=== PATIENT | female | born 1955 | race American Indian/Alaskan Native ===

== ENCOUNTER 2017-01-02 08:16 | Outpatient (CLI) | payer OTHER ==
--- NOTE | 2017-01-04 07:57 | Vascular Lab Report ---
LOWER EXTREMITY VENOUS DUPLEX: REASON FOR EXAM: Pain and swelling of the lower extremities. COMMENTS ON THE RIGHT: All veins visualized are freely compressible without evidence of internal echogenicity. Flow is spontaneous and phasic throughout. Deep and superficial venous incompetence noted in the common femoral vein, greater saphenous vein at the saphenofemoral junction. The greater saphenous vein measures between 3 and 4 mm along its length. COMMENTS ON THE LEFT: All veins visualized are freely compressible without evidence of internal echogenicity. Flow is spontaneous and phasic throughout. Deep and superficial venous incompetence noted. Reflux is noted in the common femoral, greater saphenous veins and at the saphenofemoral junction. Reflux is also noted and a small saphenous vein. The greater saphenous vein measures from 2.5-4 mm along its length. IMPRESSION: No evidence of acute or chronic deep venous thrombosis in either lower extremity. Bilateral deep and superficial incompetence noted.
== END 2017-01-02 08:17 | disposition home or self-care (01) ==
LOC: VAS 08:16
PROVIDERS: ATTEND Radiology Diagnostic Radiology
DX: I87.1 Compression of vein (principal); I87.2 Venous insufficiency (chronic) (peripheral); I83.813 Varicose veins of bilateral lower extremities with pain; M54.5 Low back pain
CPT/HCPCS: 93970

== ENCOUNTER 2017-03-02 09:02 | Outpatient (CLI) | payer OTHER ==
--- NOTE | 2017-03-03 07:52 | Vascular Lab Report ---
Left Lower Extremity Venous Duplex Study: Reason for Exam: Pain of the left lower extremity. Comments on the Right: A limited duplex study was done of the proximal veins of the right lower extremity. All veins visualized are freely compressible without evidence of internal echogenicity. Flow is spontaneous and phasic throughout. No evidence of acute or chronic thrombus is seen in any of the vessels visualized. Comments on the Left: All veins visualized are freely compressible without evidence of internal echogenicity. Flow is spontaneous and phasic throughout. No evidence of acute or chronic thrombus is seen in any of the vessels visualized. Impression: No evidence of acute or chronic deep venous thrombosis in the left lower extremity.
== END 2017-03-02 09:03 | disposition home or self-care (01) ==
LOC: VAS 09:02
PROVIDERS: ATTEND Radiology Diagnostic Radiology
DX: M79.662 Pain in left lower leg (principal); I87.2 Venous insufficiency (chronic) (peripheral); I87.1 Compression of vein; I83.813 Varicose veins of bilateral lower extremities with pain; M54.5 Low back pain

== ENCOUNTER 2017-03-09 08:51 | Outpatient (CLI) | payer OTHER ==
--- NOTE | 2017-03-10 07:16 | Vascular Lab Report ---
Right Lower Extremity Venous Duplex Study: Reason for Exam: Pain and swelling of the right lower extremity. Comments on the Right: All veins visualized are freely compressible without evidence of internal echogenicity. Flow is spontaneous and phasic throughout. No evidence of acute or chronic thrombus is seen in any of the vessels visualized. Right greater saphenous vein is ablated Comments on the Left: A limited duplex study was done of the proximal veins of the left lower extremity. All veins visualized are freely compressible without evidence of internal echogenicity. Flow is spontaneous and phasic throughout. No evidence of acute or chronic thrombus is seen in any of the vessels visualized. Impression: No evidence of acute or chronic deep venous thrombosis in the right lower extremity. Successful ablation of the right greater saphenous vein.
== END 2017-03-09 08:52 | disposition home or self-care (01) ==
LOC: VAS 08:51
PROVIDERS: ATTEND Radiology Diagnostic Radiology
DX: M79.661 Pain in right lower leg (principal); M79.89 Other specified soft tissue disorders; I87.2 Venous insufficiency (chronic) (peripheral); I83.813 Varicose veins of bilateral lower extremities with pain; I87.1 Compression of vein; M54.5 Low back pain

== ENCOUNTER 2017-07-14 07:08 | Outpatient (CLI) | payer OTHER ==
--- NOTE | 2017-07-19 17:44 | Vascular Lab Report ---
LOWER EXTREMITY VENOUS DUPLEX: REASON FOR EXAM: Pain and swelling of the lower extremities. COMMENTS ON THE RIGHT: All veins visualized are freely compressible without evidence of internal echogenicity. Flow is spontaneous and phasic throughout. No deep venous reflux noted. In the mid thigh there is a small segment of vein with a maximum diameter of 2.9 millimeters. This is a branch or a remnant of of the greater saphenous vein. There is no reflux noted there. COMMENTS ON THE LEFT: All veins visualized are freely compressible without evidence of internal echogenicity. Flow is spontaneous and phasic throughout. No deep venous reflux is noted. There is a small segment of vein with a maximum diameter of 0.35 mm and 3 seconds reflux in the mid thigh which is either a branch or remnant of the greater saphenous vein. IMPRESSION: No evidence of acute or chronic deep venous thrombosis in either lower extremity. No evidence of deep venous reflux in either lower extremity. Small isolated superficial vein segments noted in the thighs bilaterally with relatively small diameter. The left side has significant reflux.
== END 2017-07-14 07:09 | disposition home or self-care (01) ==
LOC: VAS 07:08
PROVIDERS: ATTEND Radiology Diagnostic Radiology
DX: M79.661 Pain in right lower leg (principal); M79.662 Pain in left lower leg; M79.89 Other specified soft tissue disorders; I87.1 Compression of vein; M54.5 Low back pain
CPT/HCPCS: 93970